=== PATIENT | male | born 1995 | race Caucasian/White ===

== ENCOUNTER 2018-05-30 02:05 | Emergency (ER) | payer BC ==
[2018-05-30 02:16] VITALS: BP 143/94; PULSE 88; RESP 16; TEMP 98.8
--- NOTE | 2018-05-30 03:14 | ED ---
Skin/Abscess/FB HPI - General Source: patient, RN notes reviewed Mode of arrival: ambulatory Limitations: no limitations <Diann Ramsey - Last Filed: 05/30/18 04:23> <Bev Holt - Last Filed: 05/30/18 04:53> - General Chief complaint: Skin/Abscess/Foreign Body Stated complaint: rash Time Seen by Provider: 05/30/18 02:30 - History of Present Illness Initial comments: This is a 22-year-old male who presents to the emergency department with chief complaint of penile rash. Patient states for the last few days he has noticed a dry rash at the base of his penis. He does report that he is sexually active with multiple partners but that he always uses protection. He states that he uses latex condoms from a local grocery store. He denies any history of STDs. However, he is concerned that he currently has one. He states his partners have not admitted to having STDs. He denies erectile dysfunction, urethral discharge, pain or itchiness. He states he is bothered because the rash is very dry. Denies fevers or chills, dysuria or hematuria. (Diann Ramsey) - Related Data Home Medications Medication Instructions Recorded Confirmed Ranitidine HCl 300 mg PO DAILY 06/08/17 06/08/17 Previous Rx's Medication Instructions Recorded ARIPiprazole [Abilify] 20 mg PO DAILY #30 tab 06/14/17 Donepezil HCl [Aricept] 5 mg PO HS #30 tablet 06/14/17 Donepezil [Aricept] 10 mg PO HS #30 tab 06/14/17 Nicotine 21Mg/24Hr Patch [Habitrol] 1 patch TRANSDERM DAILY #30 patch 06/14/17 Sertraline [Zoloft] 200 mg PO DAILY #60 tab 06/14/17 Allergies Allergy/AdvReac Type Severity Reaction Status Date / Time No Known Allergies Allergy Verified 05/30/18 02:16 Review of Systems ROS Other: All systems not noted in ROS Statement are negative. <Diann Ramsey - Last Filed: 05/30/18 04:23> ROS Other: All systems not noted in ROS Statement are negative. <Bev Holt - Last Filed: 05/30/18 04:53> ROS Statement: Those systems with pertinent positive or pertinent negative responses have been documented in the HPI. Past Medical History Past Medical History: No Reported History History of Any Multi-Drug Resistant Organisms: None Reported Additional Past Surgical History / Comment(s): skin graft Past Psychological History: No Psychological Hx Reported Smoking Status: Current every day smoker Past Alcohol Use History: Occasional Past Drug Use History: None Reported <Diann Ramsey - Last Filed: 05/30/18 04:23> General Exam Limitations: no limitations exam: Present: circumcision, other (mild erythematous papular rash dorsal proximal penis. no vesicles, pustules or open sores. ). Absent: urethral discharge, scrotal swelling <Diann Ramsey - Last Filed: 05/30/18 04:23> <Bev Holt - Last Filed: 05/30/18 04:53> - General Exam Comments Initial Comments: General: Awake and alert, well-developed; in no apparent distress. HEENT: Head atraumatic, normocephalic. Pupils are equal, round and reactive to light. Extraocular movements intact. Oropharynx moist without erythema or exudate. Neck: Supple. Normal ROM. Cardiovascular: Regular rate and rhythm. No murmurs, rubs or gallops. Chest symmetrical. Respiratory: Lungs clear to auscultation bilaterally. No wheezes, rales or rhonchi. Normal respiratory effort with no use of accessory muscles. Musculoskeletal: Normal ROM, no tenderness bilateral upper and lower extremities. Ambulating normally. Skin: Babb[place], warm and dry. Neurological: Alert and oriented x3. CN II-XII grossly intact. Speech is fluent and answers are appropriate. No focal neuro deficits. Psychiatric: Normal mood and affect. No overt signs of depression or anxiety noted. (Diann Ramsey) Vital Signs 05/30/18 02:13 Temperature 98.8 F Pulse Rate 88 Respiratory 16 Rate Blood Pressure 143/94 O2 Sat by Pulse 98 Oximetry Medical Decision Making <Diann Ramsey - Last Filed: 05/30/18 04:23> <Bev Holt - Last Filed: 05/30/18 04:53> - Medical Decision Making This is a 22-year-old male who presents to the emergency department with chief complaint of penile rash. Patient reports a dry rash to the base of his penis for the past couple of days. He states he is concerned for an STD. He reports having sexual intercourse with multiple partners but states that he always uses protection. He denies any urethral discharge, pain or itchiness. On physical examination, there is a very mild erythematous papular rash at the dorsal aspect of the proximal penile shaft. No vesicles, pustules or open sores are noted. No urethral discharge. I have a very low clinical suspicion for an STD. I did offer STD testing, however patient declines. He declines treatment for possible STD. He states he feels relieved that the rash does not appear to be an STD. Recommended trying a condom other than the latex ones he has been using. Recommended that patient follow up with his primary care provider. Vital signs are stable and he is in no acute distress. He will be discharged home at this time. He is in agreement and voices understanding. All questions were answered. (Diann Ramsey) I was available for consultation in the emergency department. The history and physical exam were done by the midlevel provider. I was consulted for this patient's care. I reviewed the case with the midlevel provider and based on their presentation of the patient, I agree with the assessment, medical decision making and plan of care as documented. (Bev Holt) Disposition Is patient prescribed a controlled substance at d/c from ED?: No Time of Disposition: 03:16 <Diann Ramsey - Last Filed: 05/30/18 04:23> <Bev Holt - Last Filed: 05/30/18 04:53> Clinical Impression: Rash of penis Disposition: HOME SELF-CARE Condition: Good Instructions: Sexually Transmitted Diseases (ED), Acute Rash (ED) Additional Instructions: Please follow up with primary care provider within 1-2 days. Return to emergency department if symptoms should worsen or any concerns arise. Referrals: Bing Gonzales DO [Primary Care Provider] - 1-2 days
== END 2018-05-30 03:29 | disposition home or self-care (01) ==
LOC: EEVIPCON 02:05 → EC 02:05
DX: N48.89 Other specified disorders of penis (principal); R21 Rash and other nonspecific skin eruption; F17.200 Nicotine dependence, unspecified, uncomplicated; Z79.899 Other long term (current) drug therapy; Z98.890 Other specified postprocedural states
CPT/HCPCS: 99282

== ENCOUNTER 2018-08-09 15:52 | Inpatient (IN) | payer BC ==
[2018-08-09] MEDS ORDERED: MORPHINE SULFATE 2 MG/ML SYRINGE IVP STA (16:58)
--- NOTE | 2018-08-09 17:01 | ED ---
General Adult HPI - General Chief complaint: Abdominal Pain Stated complaint: ABDOMINAL PAIN Time Seen by Provider: 08/09/18 16:45 Source: patient, RN notes reviewed Mode of arrival: ambulatory Limitations: no limitations - History of Present Illness Initial comments: Patient is a pleasant 23-year-old male presenting to the emergency Department with complaints of abdominal discomfort. Onset of symptoms was yesterday. Discomfort was fairly sudden onset. Discomfort has been fairly steady however is somewhat improved. Discomfort is left abdomen/flank. No back pain. No history of similar symptoms previously. No chest pain or dyspnea. No nausea vomiting. patient diarrhea. No dysuria or hematuria. Patient is unclear whether or not there has been any fever. - Related Data Home Medications Medication Instructions Recorded Confirmed Ranitidine HCl 300 mg PO DAILY 06/08/17 06/08/17 Previous Rx's Medication Instructions Recorded ARIPiprazole [Abilify] 20 mg PO DAILY #30 tab 06/14/17 Donepezil HCl [Aricept] 5 mg PO HS #30 tablet 06/14/17 Donepezil [Aricept] 10 mg PO HS #30 tab 06/14/17 Nicotine 21Mg/24Hr Patch [Habitrol] 1 patch TRANSDERM DAILY #30 patch 06/14/17 Sertraline [Zoloft] 200 mg PO DAILY #60 tab 06/14/17 Allergies Allergy/AdvReac Type Severity Reaction Status Date / Time No Known Allergies Allergy Verified 08/09/18 15:56 Review of Systems ROS Statement: Those systems with pertinent positive or pertinent negative responses have been documented in the HPI. ROS Other: All systems not noted in ROS Statement are negative. Constitutional: Reports: as per HPI Eyes: Denies: eye pain ENT: Denies: ear pain Respiratory: Denies: cough Cardiovascular: Denies: chest pain Endocrine: Denies: fatigue Gastrointestinal: Reports: abdominal pain. Denies: nausea, vomiting Genitourinary: Denies: dysuria Musculoskeletal: Denies: back pain Skin: Denies: rash Neurological: Denies: weakness Past Medical History Past Medical History: Hypertension Additional Past Medical History / Comment(s): broke his back in 4 places but had no surgery History of Any Multi-Drug Resistant Organisms: None Reported Additional Past Surgical History / Comment(s): skin graft Past Psychological History: Anxiety, Depression Smoking Status: Current every day smoker Past Alcohol Use History: Occasional Past Drug Use History: None Reported General Exam Limitations: no limitations General appearance: alert, in no apparent distress Head exam: Present: atraumatic Eye exam: Present: normal appearance, PERRL ENT exam: Present: normal oropharynx Neck exam: Present: normal inspection Respiratory exam: Present: normal lung sounds bilaterally Cardiovascular Exam: Present: regular rate, normal rhythm Expanded Peripheral pulses: 2+: Posterior Tibialis (R), Posterior Tibialis (L) GI/Abdominal exam: Present: soft, tenderness (Mild tenderness left side of the abdomen), normal bowel sounds. Absent: distended, guarding, rebound, rigid, pulsatile mass Extremities exam: Present: normal inspection. Absent: pedal edema, calf tenderness Neurological exam: Present: alert Psychiatric exam: Present: normal affect, normal mood Skin exam: Present: normal color Course Vital Signs 08/09/18 15:56 Temperature 98 F Pulse Rate 105 H Respiratory 18 Rate Blood Pressure 130/82 O2 Sat by Pulse 100 Oximetry Medical Decision Making - Medical Decision Making Patient reevaluated and updated. Case discussed in detail with Dr. Lanier, who will admit covering for Dr. Sung. - Lab Data Result diagrams: 08/09/18 16:13 08/09/18 16:13 Lab Results 08/09/18 08/09/18 08/09/18 Range/Units 16:13 16:13 16:13 WBC 11.8 H (3.8-10.6) k/uL RBC 5.12 (4.30-5.90) m/uL Hgb 16.0 (13.0-17.5) gm/dL Hct 47.0 (39.0-53.0) % MCV 91.9 (80.0-100.0) fL MCH 31.3 (25.0-35.0) pg MCHC 34.0 (31.0-37.0) g/dL RDW 12.9 (11.5-15.5) % Plt Count 201 (150-450) k/uL Neutrophils % 78 % Lymphocytes % 11 % Monocytes % 8 % Eosinophils % 1 % Basophils % 0 % Neutrophils # 9.2 H (1.3-7.7) k/uL Lymphocytes # 1.3 (1.0-4.8) k/uL Monocytes # 1.0 (0-1.0) k/uL Eosinophils # 0.1 (0-0.7) k/uL Basophils # 0.0 (0-0.2) k/uL PT 10.8 (9.0-12.0) sec INR 1.0 (<1.2) APTT 30.1 H (22.0-30.0) sec Sodium 138 (137-145) mmol/L Potassium 4.2 (3.5-5.1) mmol/L Chloride 99 (98-107) mmol/L Carbon Dioxide 29 (22-30) mmol/L Anion Gap 10 mmol/L BUN 16 (9-20) mg/dL Creatinine 0.76 (0.66-1.25) mg/dL Est GFR (CKD-EPI)AfAm >90 (>60 ml/min/1.73 sqM) Est GFR (CKD-EPI)NonAf >90 (>60 ml/min/1.73 sqM) Glucose 91 (74-99) mg/dL Calcium 10.2 (8.4-10.2) mg/dL Total Bilirubin 1.1 (0.2-1.3) mg/dL AST 19 (17-59) U/L ALT 29 (21-72) U/L Alkaline Phosphatase 47 (38-126) U/L Total Protein 8.1 (6.3-8.2) g/dL Albumin 4.7 (3.5-5.0) g/dL Amylase 395 H* (30-110) U/L Lipase 2472 H (23-300) U/L Urine Color Urine Appearance (Clear) Urine pH (5.0-8.0) Ur Specific [place] (1.001-1.035) Urine Protein (Negative) Urine Glucose (UA) (Negative) Urine Ketones (Negative) Urine Blood (Negative) Urine Nitrite (Negative) Urine Bilirubin (Negative) Urine Urobilinogen (<2.0) mg/dL Ur Leukocyte Esterase (Negative) Urine WBC (0-5) /hpf Amorphous Sediment (None) /hpf Urine Bacteria (None) /hpf Urine Mucus (None) /hpf 08/09/18 Range/Units 17:33 WBC (3.8-10.6) k/uL RBC (4.30-5.90) m/uL Hgb (13.0-17.5) gm/dL Hct (39.0-53.0) % MCV (80.0-100.0) fL MCH (25.0-35.0) pg MCHC (31.0-37.0) g/dL RDW (11.5-15.5) % Plt Count (150-450) k/uL Neutrophils % % Lymphocytes % % Monocytes % % Eosinophils % % Basophils % % Neutrophils # (1.3-7.7) k/uL Lymphocytes # (1.0-4.8) k/uL Monocytes # (0-1.0) k/uL Eosinophils # (0-0.7) k/uL Basophils # (0-0.2) k/uL PT (9.0-12.0) sec INR (<1.2) APTT (22.0-30.0) sec Sodium (137-145) mmol/L Potassium (3.5-5.1) mmol/L Chloride (98-107) mmol/L Carbon Dioxide (22-30) mmol/L Anion Gap mmol/L BUN (9-20) mg/dL Creatinine (0.66-1.25) mg/dL Est GFR (CKD-EPI)AfAm (>60 ml/min/1.73 sqM) Est GFR (CKD-EPI)NonAf (>60 ml/min/1.73 sqM) Glucose (74-99) mg/dL Calcium (8.4-10.2) mg/dL Total Bilirubin (0.2-1.3) mg/dL AST (17-59) U/L ALT (21-72) U/L Alkaline Phosphatase (38-126) U/L Total Protein (6.3-8.2) g/dL Albumin (3.5-5.0) g/dL Amylase (30-110) U/L Lipase (23-300) U/L Urine Color Yellow Urine Appearance Cloudy (Clear) Urine pH 7.0 (5.0-8.0) Ur Specific [place] 1.020 (1.001-1.035) Urine Protein Negative (Negative) Urine Glucose (UA) Negative (Negative) Urine Ketones Negative (Negative) Urine Blood Negative (Negative) Urine Nitrite Negative (Negative) Urine Bilirubin Negative (Negative) Urine Urobilinogen 2.0 (<2.0) mg/dL Ur Leukocyte Esterase Negative (Negative) Urine WBC 11 H (0-5) /hpf Amorphous Sediment Occasional H (None) /hpf Urine Bacteria Rare H (None) /hpf Urine Mucus Rare H (None) /hpf - Radiology Data Radiology results: report reviewed (Computed tomography scan of the abdomen pelvis shows concern for pancreatitis) Disposition Clinical Impression: Pancreatitis Disposition: ADMITTED IP TO THIS HOSP Is patient prescribed a controlled substance at d/c from ED?: No Referrals: Bing Sung DO [Primary Care Provider] - 1-2 days Decision Time: 18:42
[2018-08-09 18:08] LABS: Basophils % (A) 0 %; Eosinophils # (A) 0.1 k/uL (0-0.7); Eosinophils % (A) 1 %; Lymphocytes # (A) 1.3 k/uL (1.0-4.8); Lymphocytes % (A) 11 %; MCH 31.3 pg (25.0-35.0); MCV 91.9 fL (80.0-100.0); Mean Platelet Volume 8.9; Monocytes % (A) 8 %; Neutrophils # (A) 9.2 k/uL (1.3-7.7); Neutrophils % (A) 78 %; Platelet Count 201 k/uL (150-450); RBC 5.12 m/uL (4.30-5.90); RDW 12.9 % (11.5-15.5); WBC 11.8 k/uL (3.8-10.6)
[2018-08-09 18:15] LABS: Amorphous Sediment,Urine Occasional /hpf; Appearance,Urine Cloudy (Clear); Bacteria,Urine Rare /hpf; Bilirubin,Urine Negative (Negative); Blood,Urine Negative (Negative); Color,Urine Yellow; Glucose,Urine (UA) Negative (Negative); Ketones,Urine Negative (Negative); Leukocyte Esterase,Urine Negative (Negative); Mucus,Urine Rare /hpf; Nitrite,Urine Negative (Negative); Protein,Urine Negative (Negative); WBC,Urine 11 /hpf (0-5)
[2018-08-09 18:17] LABS: Partial Thromboplastin Time 30.1 sec (22.0-30.0); Prothrombin Time 10.8 sec (9.0-12.0)
[2018-08-09 18:19] LABS: ALT 29 U/L (21-72); AST 19 U/L (17-59); Albumin 4.7 g/dL (3.5-5.0); Alkaline Phosphatase 47 U/L (38-126); Anion Gap 10 mmol/L; Blood Urea Nitrogen 16 mg/dL (9-20); Calcium 10.2 mg/dL (8.4-10.2); Carbon Dioxide 29 mmol/L (22-30); Chloride 99 mmol/L (98-107); Glucose 91 mg/dL (74-99); Potassium 4.2 mmol/L (3.5-5.1); Sodium 138 mmol/L (137-145); Total Bilirubin 1.1 mg/dL (0.2-1.3); Total Protein 8.1 g/dL (6.3-8.2)
--- NOTE | 2018-08-09 18:26 | CT ---
EXAMINATION TYPE: CT abdomen pelvis wo con DATE OF EXAM: 08/09/2018 COMPARISON: None HISTORY: LLQ pain CT DLP: 506.5 mGycm Automated exposure control for dose reduction was used. TECHNIQUE: Helical acquisition of images was performed from the lung bases through the pelvis. FINDINGS: There is mild subsegmental atelectasis at the lung bases. There is no pleural effusion. Heart size is normal. Liver spleen gallbladder appear normal. Bile ducts are not dilated. There is mild fat stranding aroun d the pancreas. There is fluid in the anterior pararenal space on the left side. There is no adrenal mass. The kidneys have normal size and contour. There is no hydronephrosis. Urete rs are not dilated. There is no retroperitoneal adenopathy. Bladder distends smoothly. There is no inguinal hernia. There are a few bilateral inguinal lymph node s. There is normal appendix. There is no mesenteric adenopathy. There is no sign of free air. The bon y pelvis is intact. Lumbar spine is intact. There is broad-based posterior L5-S1 lumbar disc herniati on. There is 20% anterior wedging of T11 vertebra that appears old. There is also T8 anterior wedging 50% that appears old. IMPRESSION: PATCHY ATELECTASIS AT THE LUNG BASES. INFLAMMATORY CHANGES AROUND THE PANCREAS CONSISTENT WITH ACUTE PANCREATITIS. THORACIC COMPRESSION FRACTURES APPEAR OLD.
[2018-08-09 18:35] LABS: Lipase 2472 U/L (23-300)
[2018-08-09 18:36] LABS: Amylase 395 U/L (30-110)
[2018-08-09] MEDS ORDERED: NALOXONE 0.4 MG/ML 1 ML VIAL IV PRN (18:42)
[2018-08-09] MEDS ORDERED: ONDANSETRON 4 MG/2 ML VIAL IVP PRN (18:42)
[2018-08-09] MEDS: SODIUM CHLORIDE 0.9% 1,000 ML IV SCH (19:19)
[2018-08-09] MEDS: PANTOPRAZOLE 40 MG/10 ML VIAL IV SCH (20:29)
[2018-08-09] MEDS: HYDROmorphone 1 MG/ML 1 ML SYRINGE IVP PRN (22:00)
[2018-08-10] MEDS: HYDROmorphone 1 MG/ML 1 ML SYRINGE IVP PRN ×6 (03:34→23:49)
[2018-08-10] MEDS: SODIUM CHLORIDE 0.9% 1,000 ML IV SCH ×3 (03:35→19:42)
[2018-08-10] MEDS: PANTOPRAZOLE 40 MG/10 ML VIAL IV SCH (09:17)
[2018-08-10 11:19] LABS: Basophils % (A) 0 %; Eosinophils # (A) 0.1 k/uL (0-0.7); Eosinophils % (A) 1 %; HCT 42.5 % (39.0-53.0); HGB 14.2 gm/dL (13.0-17.5); Lymphocytes # (A) 1.4 k/uL (1.0-4.8); Lymphocytes % (A) 10 %; MCH 30.9 pg (25.0-35.0); MCHC 33.4 g/dL (31.0-37.0); MCV 92.7 fL (80.0-100.0); Mean Platelet Volume 7.5; Monocytes # (A) 1.1 k/uL (0-1.0); Monocytes % (A) 8 %; Neutrophils # (A) 10.6 k/uL (1.3-7.7); Neutrophils % (A) 80 %; Platelet Count 194 k/uL (150-450); RBC 4.59 m/uL (4.30-5.90); RDW 12.8 % (11.5-15.5); WBC 13.3 k/uL (3.8-10.6)
[2018-08-10 11:22] LABS: ALT 23 U/L (21-72); AST 14 U/L (17-59); Albumin 3.9 g/dL (3.5-5.0); Alkaline Phosphatase 49 U/L (38-126); Amylase 142 U/L (30-110); Anion Gap 9 mmol/L; Blood Urea Nitrogen 13 mg/dL (9-20); Calcium 9.4 mg/dL (8.4-10.2); Carbon Dioxide 25 mmol/L (22-30); Chloride 104 mmol/L (98-107); Glucose 86 mg/dL (74-99); Lipase 689 U/L (23-300); Magnesium 1.7 mg/dL (1.6-2.3); Phosphorus 3.2 mg/dL (2.5-4.5); Potassium 4.3 mmol/L (3.5-5.1); Sodium 138 mmol/L (137-145); Total Bilirubin 1.9 mg/dL (0.2-1.3)
--- NOTE | 2018-08-10 15:23 | US ---
EXAMINATION TYPE: US abdomen limited DATE OF EXAM: 08/10/2018 COMPARISON: CT from yesterday. CLINICAL HISTORY: pancreatitis. EXAM MEASUREMENTS: Liver Length: 13.1 cm Gallbladder Wall: 0.2 cm CBD: 0.3 cm Right Kidney: 10.0 x 5.8 x 5.6 cm Pancreas: mid and tail obscured by overlying bowel gas Liver: wnl Gallbladder: wnl Evidence for sonographic Cm's sign: no CBD: wnl Right Kidney: wnl Significant portions of pancreas are obscured by overlying bowel gas on images saved. IMPRESSION: Suboptimal evaluation of pancreas, findings consistent with product of acute pancreatitis seen better on CT study one day earlier.
[2018-08-10] MEDS: HEPARIN SODIUM,PORCINE 5,000 UNIT/ML 1 ML VIAL SQ SCH ×2 (16:21→23:35)
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
[2018-08-11] MEDS: SODIUM CHLORIDE 0.9% 1,000 ML IV SCH ×2 (06:40→11:58)
[2018-08-11 07:35] VITALS: RESP 16
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
[2018-08-11] MEDS: HEPARIN SODIUM,PORCINE 5,000 UNIT/ML 1 ML VIAL SQ SCH ×2 (08:27→16:17)
[2018-08-11] MEDS: PANTOPRAZOLE 40 MG/10 ML VIAL IV SCH (08:27)
[2018-08-11] MEDS: HYDROmorphone 1 MG/ML 1 ML SYRINGE IVP PRN ×3 (08:34→14:33)
[2018-08-11] MEDS ORDERED: LISINOPRIL 10 MG TAB PO SCH (09:00)
[2018-08-11] MEDS ORDERED: SERTRALINE 100 MG TAB PO SCH (09:00)
[2018-08-11 13:12] VITALS: BMI 27.6
[2018-08-11 15:21] VITALS: BP 116/78; PULSE 92; TEMP 97.6
--- NOTE | 2018-08-12 00:31 | P.DS ---
Providers Date of admission: 08/09/18 18:42 Expected date of discharge: 08/11/18 Attending physician: Nils Lanier Consults: 08/09/18 18:42 Consult Physician Urgent Consulting Provider: Haley López Consult Reason/Comments: pancreatitis Do you want consulting provider notified?: Yes Primary care physician: Bing Gonzales Hospital Course: Discharge diagnosis Acute pancreatitis. With elevated lipase level. Initial onset. Etiology exactly unknown at this time. CT abdomen pelvis and ultrasound of the abdomen negative. Anxiety/depression Currently everyday smoker DVT prophylaxis with early ambulation Hypertension Hospital course Patient is a 23-year-old male admitted to hospital with abdominal pain and elevated lipase level. Patient denied any previous history of acute pancreatitis. Denied any alcohol intake or history of gallstones. Denied any recent illnesses. Triglycerides are not elevated. Otherwise patient does take Abilify for anxiety/depression, which has a side effect of pancreatitis. Follow up closely. CT of the abdomen pelvis and ultrasound of the abdomen is consistent with acute appendicitis. CT of abdomen pelvis showed inflammatory changes around pancreas consistent with pancreatitis. Thoracic compression fractures appear old. Ultrasound of the abdomen showed suboptimal evaluation of pancreas, findings consistent with productive cough pancreatitis acute as seen in the CT prior to that. Lipase level 2472 Patient was continued on IV fluids, nothing by mouth and pain management with morphine. Patient did improve clinically and was started on clear liquid diet advance as tolerated. Patient has been taking anxiety/depression medication for the past 6 years. Unlikely pancreatitis from the medications. Patient was advised to continue with medications and follow up with psychiatric clinic and PCP. Advised to come to ER if further symptoms develop. Otherwise patient is stable to be discharged home. Discharge physical examination was done and vitals reviewed. Patient Condition at Discharge: Fair Plan - Discharge Summary Discharge Rx Participant: No New Discharge Prescriptions: Continue Sertraline [Zoloft] 100 mg PO DAILY Lisinopril [Zestril] 10 mg PO DAILY ARIPiprazole [Abilify] 10 mg PO DAILY Discharge Medication List ARIPiprazole [Abilify] 10 mg PO DAILY 08/09/18 [History] Lisinopril [Zestril] 10 mg PO DAILY 08/09/18 [History] Sertraline [Zoloft] 100 mg PO DAILY 08/09/18 [History] Follow up Appointment(s)/Referral(s): Bing Gonazles DO [Primary Care Provider] - 1-2 days [facility], [NON-STAFF] - Patient Instructions/Handouts: Pancreatitis (DC) Activity/Diet/Wound Care/Special Instructions: low fiber low fat diet Discharge Disposition: HOME WITH HOME HEALTH SERVICES
[2018-08-12 13:35] LABS: IgG Subclass 3 27.8 mg/dL (11.0-85.0); IgG Subclass 4 44.2 mg/dL (3.0-175.0)
== END 2018-08-11 18:41 | disposition home health service (06) | DRG 440 ==
LOC: EC 15:52 → EEVIPCON 15:52 → 4MS4W 18:42
PROVIDERS: ADMIT Internal Medicine; ATTEND Internal Medicine
DX: K85.90 Acute pancreatitis without necrosis or infection, unspecified (principal); F17.200 Nicotine dependence, unspecified, uncomplicated; F32.9 Major depressive disorder, single episode, unspecified; F41.9 Anxiety disorder, unspecified; I10 Essential (primary) hypertension; Z79.899 Other long term (current) drug therapy; Z82.49 Family history of ischemic heart disease and other diseases of the circulatory system; M48.54XS Collapsed vertebra, not elsewhere classified, thoracic region, sequela of fracture
CPT/HCPCS: 36415; 74176; 76705; 80053; 81001; 82150; 82787; 83605; 83690; 83735; 84100; 84478; 85025; 85610; 85730; 96374; 99285

== ENCOUNTER 2018-08-11 21:42 | Emergency (ER) | payer BC ==
[2018-08-11 21:59] VITALS: TEMP 99.9
[2018-08-12 00:22] LABS: Appearance,Urine Clear (Clear); Bilirubin,Urine Negative (Negative); Color,Urine Yellow; Glucose,Urine (UA) Negative (Negative); Ketones,Urine 2+ (Negative); Protein,Urine Negative (Negative); Specific Gravity,Urine 1.011 (1.001-1.035)
[2018-08-12 00:23] LABS: Basophils % (A) 0 %; Blood,Urine Negative (Negative); Eosinophils # (A) 0.1 k/uL (0-0.7); Eosinophils % (A) 1 %; HCT 39.9 % (39.0-53.0); HGB 14.2 gm/dL (13.0-17.5); Leukocyte Esterase,Urine Negative (Negative); Lymphocytes # (A) 1.6 k/uL (1.0-4.8); Lymphocytes % (A) 12 %; MCH 32.2 pg (25.0-35.0); MCHC 35.5 g/dL (31.0-37.0); MCV 90.6 fL (80.0-100.0); Mean Platelet Volume 7.7; Monocytes # (A) 0.9 k/uL (0-1.0); Monocytes % (A) 7 %; Neutrophils # (A) 10.2 k/uL (1.3-7.7); Neutrophils % (A) 79 %; Nitrite,Urine Negative (Negative); Platelet Count 180 k/uL (150-450); RBC 4.41 m/uL (4.30-5.90); RDW 12.4 % (11.5-15.5)
--- NOTE | 2018-08-12 00:28 | XR ---
EXAMINATION TYPE: XR KUB DATE OF EXAM: 08/12/2018 COMPARISON: NONE HISTORY: Pancreatitis TECHNIQUE: 2 views of right FINDINGS: There is no sign of intestinal obstruction or pneumoperitoneum. Fecal pattern is normal. Th ere is some linear density at the left lung base. There are no pathologic calcifications over the kid neys. IMPRESSION: Nonacute abdomen. Mild subsegmental atelectasis left lung base.
[2018-08-12 00:34] LABS: ALT 45 U/L (21-72); AST 44 U/L (17-59); Albumin 4.1 g/dL (3.5-5.0); Alkaline Phosphatase 90 U/L (38-126); Amylase 66 U/L (30-110); Anion Gap 9 mmol/L; Blood Urea Nitrogen 9 mg/dL (9-20); Calcium 9.7 mg/dL (8.4-10.2); Carbon Dioxide 25 mmol/L (22-30); Chloride 102 mmol/L (98-107); Glucose 114 mg/dL (74-99); Lipase 368 U/L (23-300); Potassium 4.1 mmol/L (3.5-5.1); Sodium 136 mmol/L (137-145); Total Bilirubin 1.4 mg/dL (0.2-1.3); Total Protein 7.4 g/dL (6.3-8.2)
[2018-08-12] MEDS ORDERED: ONDANSETRON 4 MG/2 ML VIAL IVP STA (00:52)
[2018-08-12] MEDS ORDERED: SODIUM CHLORIDE 0.9% 1,000 ML IV ONE (00:52)
[2018-08-12] MEDS ORDERED: FAMOTIDINE 20 MG/2 ML VIAL IV STA (00:52)
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
[2018-08-12 01:34] VITALS: RESP 16
[2018-08-12 04:58] VITALS: BP 130/73; PULSE 99
== END 2018-08-12 05:00 | disposition home or self-care (01) ==
LOC: EEVIPCON 21:42 → EC 21:42
DX: K85.90 Acute pancreatitis without necrosis or infection, unspecified (principal); I10 Essential (primary) hypertension; F32.9 Major depressive disorder, single episode, unspecified; F41.9 Anxiety disorder, unspecified; F17.200 Nicotine dependence, unspecified, uncomplicated; Z79.899 Other long term (current) drug therapy
CPT/HCPCS: 36415; 80053; 82150; 83690; 85025; 81003; 74018; 99284; 96374; 96375; 96361; J2405

== ENCOUNTER 2018-09-16 21:10 | Emergency (ER) | payer BC ==
[2018-09-16] MEDS ORDERED: TOPICAL SKIN ADHESIVE 1 EACH AMP TOPICAL ONE (21:34)
--- NOTE | 2018-09-16 21:58 | XR ---
EXAMINATION TYPE: XR toes bilateral DATE OF EXAM: 09/16/2018 COMPARISON: NONE HISTORY: Pain and swelling TECHNIQUE: 3 views of each little toe FINDINGS: I see no fracture nor dislocation. Joint spaces are normal. There are no erosions. IMPRESSION: Negative bilateral little toe exam.
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
[2018-09-16 22:48] VITALS: BP 139/82; PULSE 83; RESP 18; TEMP 98.7
== END 2018-09-16 22:45 | disposition home or self-care (01) ==
LOC: EC 21:10
DX: M79.674 Pain in right toe(s) (principal); M79.675 Pain in left toe(s); M79.89 Other specified soft tissue disorders; I10 Essential (primary) hypertension; F32.9 Major depressive disorder, single episode, unspecified; F41.9 Anxiety disorder, unspecified; F17.200 Nicotine dependence, unspecified, uncomplicated; Z79.899 Other long term (current) drug therapy
CPT/HCPCS: 99283

== ENCOUNTER 2019-02-28 21:15 | Emergency (ER) | payer BC, MEDICARE ==
[2019-02-28 21:23] VITALS: RESP 16
[2019-02-28] MEDS ORDERED: SODIUM CHLORIDE 0.9% 1,000 ML IV STA (22:16)
[2019-02-28 22:38] LABS: Appearance,Urine Clear (Clear); Bilirubin,Urine Negative (Negative); Blood,Urine Negative (Negative); Color,Urine Yellow; Glucose,Urine (UA) Negative (Negative); Ketones,Urine Trace (Negative); Leukocyte Esterase,Urine Negative (Negative); Nitrite,Urine Negative (Negative); Protein,Urine Trace (Negative); Specific Gravity,Urine 1.032 (1.001-1.035)
[2019-02-28 22:39] LABS: Basophils % (A) 0 %; Eosinophils # (A) 0.2 k/uL (0-0.7); Eosinophils % (A) 1 %; HCT 45.3 % (39.0-53.0); HGB 15.5 gm/dL (13.0-17.5); Lymphocytes # (A) 2.4 k/uL (1.0-4.8); Lymphocytes % (A) 18 %; MCH 31.3 pg (25.0-35.0); MCHC 34.3 g/dL (31.0-37.0); MCV 91.3 fL (80.0-100.0); Mean Platelet Volume 8.2; Monocytes # (A) 0.7 k/uL (0-1.0); Monocytes % (A) 5 %; Neutrophils # (A) 10.4 k/uL (1.3-7.7); Neutrophils % (A) 75 %; Platelet Count 192 k/uL (150-450); RBC 4.96 m/uL (4.30-5.90); RDW 14.4 % (11.5-15.5); WBC 13.8 k/uL (3.8-10.6)
[2019-02-28 22:48] LABS: ALT 28 U/L (21-72); AST 27 U/L (17-59); African American GFR (CKD) >90 (>60 ml/min/1.73 sqM); Albumin 4.8 g/dL (3.5-5.0); Alkaline Phosphatase 51 U/L (38-126); Anion Gap 11 mmol/L; Blood Urea Nitrogen 16 mg/dL (9-20); Calcium 9.9 mg/dL (8.4-10.2); Carbon Dioxide 25 mmol/L (22-30); Chloride 103 mmol/L (98-107); Glucose 85 mg/dL (74-99); Potassium 4.3 mmol/L (3.5-5.1); Sodium 139 mmol/L (137-145); Total Bilirubin 0.7 mg/dL (0.2-1.3); Total Protein 7.7 g/dL (6.3-8.2)
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
--- NOTE | 2019-02-28 23:03 | CT ---
EXAM: CT Head Without Intravenous Contrast CLINICAL HISTORY: ITS.REASON CT Reason: Pain TECHNIQUE: Axial computed tomography images of the head/brain without intravenous contrast. This CT exam was performed using one or more of the following dose reduction techniques: automated exposure control, adjustment of the mA and/or kV according to patient size, and/or use of iterative reconstruction technique. COMPARISON: No relevant prior studies available. FINDINGS: Brain: No hemorrhage. No edema. Ventricles: Unremarkable. No ventriculomegaly. Bones/joints: No acute fracture. Soft tissues: Unremarkable. Sinuses: No fluid levels. Mastoid air cells: Unremarkable as visualized. No mastoid effusion. IMPRESSION: No acute intracranial findings EXAM: CT Cervical Spine Without Intravenous Contrast CLINICAL HISTORY: ITS.REASON CT Reason: Pain TECHNIQUE: Axial computed tomography images of the cervical spine without intravenous contrast. This CT exam was performed using one or more of the following dose reduction techniques: automated exposure control, adjustment of the mA and/or kV according to patient size, and/or use of iterative reconstruction technique. COMPARISON: No relevant prior studies available. FINDINGS: Vertebrae: No acute fracture. Discs/spinal canal/neural foramina: No suspicious findings. Soft tissues: Unremarkable. IMPRESSION: No acute findings.
--- NOTE | 2019-02-28 23:07 | CT ---
EXAM: CT Chest With Intravenous Contrast CLINICAL HISTORY: ITS.REASON CT Reason: Pain TECHNIQUE: Axial computed tomography images of the chest with intravenous contrast. This CT exam was performed using one or more of the following dose reduction techniques: automated exposure control, adjustment of the mA and/or kV according to patient size, and/or use of iterative reconstruction technique. COMPARISON: No relevant prior studies available. FINDINGS: Lungs: Unremarkable. No mass. No consolidation. Pleural space: Unremarkable. No pneumothorax. No significant effusion. Heart: Unremarkable. No cardiomegaly. No significant pericardial effusion. Bones/joints: No acute fracture. No dislocation. Soft tissues: Unremarkable. Vasculature: Unremarkable. No thoracic aortic aneurysm. Lymph nodes: Unremarkable. No enlarged lymph nodes. IMPRESSION: Normal chest CT. EXAM: CT Abdomen and Pelvis With Intravenous Contrast CLINICAL HISTORY: ITS.REASON CT Reason: Pain TECHNIQUE: Axial computed tomography images of the abdomen and pelvis with intravenous contrast. This CT exam was performed using one or more of the following dose reduction techniques: automated exposure control, adjustment of the mA and/or kV according to patient size, and/or use of iterative reconstruction technique. COMPARISON: No relevant prior studies available. FINDINGS: Lung bases: Unremarkable. No mass. No consolidation. ABDOMEN: Liver: Unremarkable. No mass. Gallbladder and bile ducts: No abnormal ductal dilation or stones. Pancreas: Unremarkable. No mass. No ductal dilation. Spleen: Unremarkable. No splenomegaly. Adrenals: Unremarkable. No mass. Kidneys and ureters: Unremarkable. No solid mass. No hydronephrosis. Stomach and bowel: No obstruction. No mucosal thickening. PELVIS: Appendix: No findings to suggest acute appendicitis. Bladder: Unremarkable. No mass. Reproductive: Unremarkable as visualized. ABDOMEN and PELVIS: Intraperitoneal space: Unremarkable. No free air. No significant fluid collection. Bones/joints: No acute fracture. No dislocation. Chronic compression fracture at T8. Soft tissues: Unremarkable. Vasculature: No abdominal aortic aneurysm. Lymph nodes: Unremarkable. No enlarged lymph nodes. IMPRESSION: No acute findings.
[2019-02-28] MEDS ORDERED: IBUPROFEN 600 MG STARTER PACK 4 TAB BTL PO STA (23:33)
[2019-03-01 00:03] VITALS: BP 122/80; PULSE 70; TEMP 98
== END 2019-03-01 00:02 | disposition home or self-care (01) ==
LOC: EC 21:15
DX: R07.81 Pleurodynia (principal); D72.829 Elevated white blood cell count, unspecified; I10 Essential (primary) hypertension; F17.200 Nicotine dependence, unspecified, uncomplicated; Z79.899 Other long term (current) drug therapy; Z88.5 Allergy status to narcotic agent; V86.59XA Driver of other special all-terrain or other off-road motor vehicle injured in nontraffic accident, initial encounter; Y92.828 Other wilderness area as the place of occurrence of the external cause
CPT/HCPCS: 36415; 80053; 83605; 84484; 85025; 81003; 72125; 70450; 71260; 74177; 99284; 96360; Q9967

== ENCOUNTER → 2019-05-17 | Outpatient (CLI) | payer BC, MEDICARE ==
--- NOTE | 2019-05-17 09:50 | US ---
EXAMINATION TYPE: US scrotum with doppler. Grayscale and color Doppler Duplex imaging performed of t he scrotum. DATE OF EXAM: 05/17/2019 COMPARISON: NONE CLINICAL HISTORY: N50.811 R testicular pain. Right testicular pain that comes and goes- happened twic e within a month. EXAM MEASUREMENTS: TESTICLES: Right Testicle: 3.2 x 3.7 x 2.2 cm Left Testicle: 3.5 x 3.1 x 2.2 cm EPIDIDYMIS HEAD: Right Epididymis: 1.0 x 0.7 x 0.8 cm Left Epididymis: 0.9 x 0.9 x 0.9 cm Doppler performed to assess for testicular vascularity; good bilateral color flow and waveforms are s een. There is no evidence of testicular torsion. Presence of hydroceles: no Presence of varicoceles: no IMPRESSION: No distinct abnormality appreciated at this time.
== END | disposition home or self-care (01) ==
LOC: RADUSMAIN 08:48
PROVIDERS: ATTEND Nurse Practitioner Family
DX: N50.811 Right testicular pain (principal)
CPT/HCPCS: 76870; 93975